=== PATIENT | female | born 1955 | race American Indian/Alaskan Native ===

== ENCOUNTER 2017-03-10 10:06 | Outpatient (CLI) | payer BC ==
--- NOTE | 2017-03-10 16:03 | Mammography Report ---
BILATERAL DIGITAL SCREENING MAMMOGRAM with CAD : 03/10/17 10:06:00 CLINICAL: Routine screening. COMPARISON:03/24/16 FINDINGS: The breasts are heterogeneously dense, which may obscure small masses. No mass, architectural distortion or suspicious calcifications. IMPRESSION: No mammographic evidence of malignancy. BI-RADS CATEGORY: 2 -- Benign RECOMMENDATION: Routine mammographic screening in one year. COMMENT: Patient follow-up letters are generated by our [employer] application.
== END 2017-03-10 10:07 | disposition home or self-care (01) ==
LOC: SPVWC 10:06
PROVIDERS: ATTEND Specialist
DX: Z12.31 Encounter for screening mammogram for malignant neoplasm of breast (principal)
CPT/HCPCS: 77067; G0202

== ENCOUNTER 2018-02-18 11:10 | Outpatient (CLI) | payer BC | END 2018-02-18 11:11 | disposition home or self-care (01) | LOC: SPVWC 11:10 | PROVIDERS: ATTEND Specialist | DX: Z12.31 Encounter for screening mammogram for malignant neoplasm of breast (principal) | CPT/HCPCS: 77067 ==

== ENCOUNTER 2018-04-27 09:06 | Outpatient (CLI) | payer BC ==
--- NOTE | 2018-04-27 09:46 | Mammography Report ---
Left mammogram: Call back. CC and lateral magnification views of calcifications in the superior left breast demonstrates a slightly heterogeneous appearing group of calcifications which have increased in numbers since prior exam in 2017. There is a focal branching calcification which has not been previously noted. No associated soft tissue changes appreciated. Impression: Suspicious change in left breast calcifications. Recommendation: Biopsy. Stereotactic approach suggested. The patient has been informed of the findings and recommendations. BI-RADS CATEGORY: 4 = Suspicious ACR BI-RADS MAMMOGRAPHIC CODES: 0 = Needs additional imaging evaluation; 1 = Negative; 2 = Benign; 3 = Probably benign; 4 = Suspicious; 5 = Malignant; 6 = Known biopsy-proven malignancy COMMENT: 1. Dense breast tissue, i.e., adenosis, fibrocystic changes, etc., may obscure an underlying neoplasm. 2. Approximately 10% of cancers are not detected with mammography. 3. A negative mammography report should not delay biopsy if a clinically suspicious mass is present.
== END 2018-04-27 09:07 | disposition home or self-care (01) ==
LOC: SPVWC 09:06
PROVIDERS: ATTEND Family Medicine
DX: R92.1 Mammographic calcification found on diagnostic imaging of breast (principal)

== ENCOUNTER 2018-05-31 09:21 | Outpatient (CLI) | payer BC ==
--- NOTE | 2018-05-31 11:23 | Mammography Report ---
LEFT DIGITAL DIAGNOSTIC MAMMOGRAM: 05/31/18 09:21:00 CLINICAL: For clip placement immediately status post stereotactic biopsy for calcifications. COMPARISON:04/27/18 FINDINGS: A biopsy clip is now identified in the upper inner quadrant at the site of previously described calcifications. Most of the calcifications had been removed.A second group of lower outer calcifications have benign morphology. IMPRESSION: Concordant clip placement status post stereotactic biopsy. BI-RADS CATEGORY: 4--Suspicious Pathology pending.
--- NOTE | 2018-05-31 11:32 | Mammography Report ---
STEREOTACTIC VACUUM ASSISTED BIOPSY WITH CLIP PLACEMENT LEFT BREAST: 05/31/18 09:21:00 CLINICAL: Upper inner calcifications. COMPARISON:04/27/18 FINDINGS: Consent for the procedure was obtained. The previously identified group of calcifications was targeted with stereotactic guidance. The skin was prepped with Betadine and anesthetized with 1% lidocaine. 2% lidocaine with epinephrine was injected for deeper anesthesia. 8 gauge Mammotome biopsy was performed from a CC from above approach through a small dermatotomy. Prefire and post-fire images demonstrated satisfactory positioning of the probe. Samples were obtained around the clock face. 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 A clip was placed at the biopsy site and deployment was confirmed with an image. The probe was removed and hemostasis was achieved with mild pressure. A sterile dressing was applied. The patient tolerated the procedure well and there were no apparent complications. Two view mammogram demonstrated concordant position of the biopsy clip. IMPRESSION: Uncomplicated stereotactic biopsy with clip placement left breast.
== END 2018-05-31 09:22 | disposition home or self-care (01) ==
LOC: SPVWC 09:21
PROVIDERS: ATTEND Surgery
DX: N60.22 Fibroadenosis of left breast (principal); R92.0 Mammographic microcalcification found on diagnostic imaging of breast
CPT/HCPCS: 19081; 77065; 88305; A4648

== ENCOUNTER 2018-11-30 14:31 | Outpatient (CLI) | payer BC ==
--- NOTE | 2018-11-30 15:12 | Mammography Report ---
BILATERAL DIGITAL DIAGNOSTIC MAMMOGRAM with CAD: 11/30/18 14:31:00 CLINICAL: Status post left stereotactic biopsy of benign calcifications 05/31/18. COMPARISON:02/18/18 and 05/17/18 FINDINGS: The breasts are heterogeneously dense, which may obscure small masses. A few residual calcifications at the left stereotactic biopsy site. A second group of left calcifications is stable with no suspicious morphology.No mass, architectural distortion or suspicious calcifications. IMPRESSION: No mammographic evidence of malignancy. BI-RADS CATEGORY: 2 - - Benign RECOMMENDATION: Routine mammographic screening in one year. ACR BI-RADS MAMMOGRAPHIC CODES: 0 = Needs additional imaging evaluation; 1 = Negative; 2 = Benign; 3 = Probably benign; 4 = Suspicious; 5 = Malignant; 6 = Known biopsy-proven malignancy COMMENT: 1. Dense breast tissue, i.e., adenosis, fibrocystic changes, etc., may obscure an underlying neoplasm. 2. Approximately 10% of cancers are not detected with mammography. 3. A negative mammography report should not delay biopsy if a clinically suspicious mass is present. COMMENT: Patient follow-up letters are generated by our [employer] application.
== END 2018-11-30 14:32 | disposition home or self-care (01) ==
LOC: SPVWC 14:31
PROVIDERS: ATTEND Surgery
DX: R92.1 Mammographic calcification found on diagnostic imaging of breast (principal)
CPT/HCPCS: 77066

== ENCOUNTER 2020-11-22 14:17 | Outpatient (CLI) | payer BC | END 2020-11-22 14:18 | disposition home or self-care (01) | LOC: SPVWC 14:17 | DX: Z12.31 Encounter for screening mammogram for malignant neoplasm of breast (principal) | CPT/HCPCS: 77067 ==